=== PATIENT | male | born 1970 | race African-American/Black ===

== ENCOUNTER → 2019-10-21 | Outpatient (CLI) | payer BC ==
--- NOTE | 2019-10-22 02:47 | KCIC ---
Five-view lumbar spine dated 10/21/2019. No comparison available. CLINICAL INDICATION: Bilateral low back pain. FINDINGS: AP, lateral, bilateral oblique views obtained. Sagittal alignment is anatomic. Vertebral body heights are maintained. There is mild dextroconvex curvature. Mild endplate hypertrophic changes throughout with mild multilevel disc space narrowing and moderate arthrosis lower lumbar apophyseal joints. No apparent pars defects on the oblique views. IMPRESSION: 1. No acute radiographic abnormality. 2. Mild multilevel spondylosis. Electronically signed by: Colt Thomas MD (10/22/2019 2:44 AM) [id number]
== END | disposition home or self-care (01) ==
LOC: KCIC 14:54
PROVIDERS: ATTEND Family Medicine
DX: M47.816 Spondylosis without myelopathy or radiculopathy, lumbar region (principal); M48.061 Spinal stenosis, lumbar region without neurogenic claudication; M89.38 Hypertrophy of bone, other site
CPT/HCPCS: 72110

== ENCOUNTER → 2021-02-07 | Outpatient (CLI) | payer BC ==
--- NOTE | 2021-02-07 10:52 | KCIC ---
EXAM: 3 views of the left elbow DATE: 02/07/2021 10:00 AM INDICATION: Reason: Elbow pain, limited ROM, unable to fully extend arm. / Spl. Instructions: / Hist ory: COMPARISON: No Prior FINDINGS: No elbow joint effusion. No acute fracture or dislocation. Degenerative changes of the left elbow wit h small osteophytes. Small joint bodies of the posterior joint line. Small olecranon enthesophyte. No significant soft tissue swelling. IMPRESSION: 1. No acute fracture or dislocation. 2. Left elbow joint osteoarthritis. 3. Small joint bodies are seen in the olecranon fossa. Electronically signed by: Cole Edwards MD (02/07/2021 10:49 AM) [place]
--- NOTE | 2021-02-07 10:53 | KCIC ---
EXAM: AP, lateral and oblique views of the left knee DATE: 02/07/2021 10:00 AM CLINICAL INDICATION: Reason: Left knee pain and swelling. No known injury. / Spl. Instructions: / H istory: COMPARISON: None. FINDINGS: Negative for acute or subacute fracture. Regional joint spaces are preserved although tricompartment al osteophytes are seen. Negative focal soft tissue swelling. Negative retained radiopaque foreign mark dy. There is a small left knee joint effusion. Small suprapatellar enthesophyte. IMPRESSION: 1. No evidence of acute fracture or dislocation. 2. Mild left knee joint osteoarthritis with small associated osteophytes. 3. Prominent suprapatellar enthesophyte. 4. There is a small left knee joint effusion. Electronically signed by: Cole Edwards MD (02/07/2021 10:50 AM) [place]
== END ==
LOC: KCIC 09:35
PROVIDERS: ATTEND Family Medicine
DX: M17.12 Unilateral primary osteoarthritis, left knee (principal); M25.762 Osteophyte, left knee; M25.462 Effusion, left knee; M19.022 Primary osteoarthritis, left elbow
CPT/HCPCS: 73080; 73562